=== PATIENT | female | born 1965 | race Caucasian/White ===

== ENCOUNTER 2017-05-27 16:47 | Emergency (ER) | payer BC ==
--- NOTE | 2017-05-27 16:49 | UC ---
Allergic Reaction HPI - HPI Summary HPI Summary: 51 YEAR OLD FEMALE PRESENTS WITH A ANAPHYLACTIC REACTION TO A BEE STING. - History of Current Complaint Stated Complaint: STUNG BY BEE,SOB Time Seen by Provider: 05/27/17 16:49 - Allergies/Home Medications Allergies/Adverse Reactions: Allergies Allergy/AdvReac Type Severity Reaction Status Date / Time No Known Allergies Allergy Verified 05/27/17 16:58 Home Medications: Home Medications Magnesium [Magnesium Elemental] 05/27/17 [History] diPHENhydraMINE PO* [Benadryl PO 25 MG TAB*] 25 mg PO PRN 05/27/17 [History] PMH/Surg Hx/FS Hx/Imm Hx Previously Healthy: Yes - Surgical History Surgical History: Yes Surgery Procedure, Year, and Place: RT ANKLE AGE 12, ROTATOR CUFF RT - Family History Known Family History: Positive: Other - NONCONTRIBUTORY - Social History Alcohol Use: Weekly Alcohol Amount: 3-4 WEEKLY Substance Use Type: None Smoking Status (MU): Never Smoked Tobacco Review of Systems Constitutional: Negative Skin: Rash Eyes: Negative ENT: Negative Respiratory: Negative Cardiovascular: Negative Gastrointestinal: Negative Genitourinary: Negative Motor: Negative Neurovascular: Negative Musculoskeletal: Negative Neurological: Negative Psychological: Negative All Other Systems Reviewed And Are Negative: Yes Physical Exam Triage Information Reviewed: Yes Eye Exam: Normal ENT Exam: Normal Dental Exam: Normal Neck exam: Normal Neck: Positive: 1 Respiratory Exam: Normal Cardiovascular Exam: Normal Abdominal Exam: Normal Musculoskeletal Exam: Normal Neurological Exam: Normal Psychological Exam: Normal Skin: Positive: rashes Allergic Reaction Course/Dx - Differential Dx/Diagnosis Provider Diagnoses: ANAPHYLACTIC REACTION TO BEE STING Discharge - Discharge Plan Condition: Stable Disposition: [facility] Patient Education Materials: Insect Bite or Sting (ED) Referrals: Tamiko Kearney MD [Primary Care Provider] -
[2017-05-27] MEDS ORDERED: diPHENhydraMINE IV* 50 MG/ML 1 ml VIAL (BENADRYL) IM ONE (16:50)
[2017-05-27] MEDS ORDERED: methylPREDNISolone 125 MG* 2 ML VIAL IM ONE (16:50)
[2017-05-27] MEDS ORDERED: NS 0.9% 1000 ML* 1,000 ML IV ONE (16:52)
[2017-05-27] MEDS ORDERED: Famotidine TAB* 20 MG PO ONE (16:53)
[2017-05-27] MEDS ORDERED: EPINEPHrine AMP 1 MG/ML SUBCUT ONE (16:54)
[2017-05-27 16:58] VITALS: BP 152/84
== END 2017-05-27 17:30 | disposition short-term general hospital (02) ==
LOC: UCEAST 16:47
DX: T63.441A Toxic effect of venom of bees, accidental (unintentional), initial encounter (principal); T78.2XXA Anaphylactic shock, unspecified, initial encounter; R21 Rash and other nonspecific skin eruption; Y92.9 Unspecified place or not applicable
CPT/HCPCS: 93005; 96360; 96372; 96375; 96376; 99213; A9270-GY; G0463; J0171; J1200; J2930

== ENCOUNTER 2017-05-27 18:16 | Emergency (ER) | payer BC ==
--- NOTE | 2017-05-27 19:45 | ED ---
Jose Nieves Angela, scribed for Jamie Dumont MD on 05/27/17 at 1824 . Allergic Reaction/Systemic - HPI Summary HPI Summary: 51 y/o female presents to the ED [facility] from [facility] c/o allergic reaction s/p a bee sting at around 4:15 PM today. Pt notes that her legs, hands, face became very itchy. She reports it became hard to swallow and described it as feeling " a big gulp of water making it hard to swallow." She notes erythematous and pruritic hives on both her arms. Pt states she had a shot of epi, steroids, benadryl, and oral pepsin at [facility]. - History of Current Complaint Hx Obtained From: Patient Onset/Duration: Sudden Onset Timing: Lasting Hours Character: Swelling, Pruritus, Hives Associated Signs And Symptoms: Positive: Throat Tightening. Negative: Difficulty Breathing - Allergies/Home Medications Allergies/Adverse Reactions: Allergies Allergy/AdvReac Type Severity Reaction Status Date / Time No Known Allergies Allergy Verified 05/27/17 16:58 PMH/Surg Hx/FS Hx/Imm Hx Endocrine/Hematology History: Denies: Hx Diabetes Cardiovascular History: Denies: Hx Hypertension, Hx Pacemaker/ICD History: Denies: Hx Renal Disease Sensory History: Reports: Hx Contacts or Glasses - CONTACTS-INSTRUCTED TO WEAR GLASSES Denies: Hx Hearing Aid Opthamlomology History: Reports: Hx Contacts or Glasses - CONTACTS-INSTRUCTED TO WEAR GLASSES Psychiatric History: Denies: Hx Panic Disorder - Surgical History Surgery Procedure, Year, and Place: RT ANKLE AGE 12, ROTATOR CUFF RT Hx Anesthesia Reactions: No - Family History Known Family History: Positive: Other - NONCONTRIBUTORY - Social History Alcohol Use: Weekly Alcohol Amount: 3-4 WEEKLY Substance Use Type: Reports: None Smoking Status (MU): Never Smoked Tobacco Review of Systems Positive: Other - Itchiness on legs, arms, and face. Positive: Other - Itchy arms, legs, and face Positive: Rash All Other Systems Reviewed And Are Negative: Yes Physical Exam - Summary Physical Exam Summary: General: well-appearing, no pain distress Skin: warm, color reflects adequate perfusion, dry Head: normal Eyes: EOMI, BETH ENT: normal Neck: supple, nontender Respiratory: CTA, breath sounds present Cardiovascular: RRR Abdomen: soft, nontender Bowel: present Musculoskeletal: normal, strength/ROM intact Neurological: normal, sensory/motor intact, A&O x3 Psychological: affect/mood appropriate Triage Information Reviewed: Yes Vital Signs On Initial Exam: Initial Vitals Temp Pulse Resp BP Pulse Ox 98.5 F 82 16 112/63 100 05/27/17 18:27 05/27/17 18:27 05/27/17 18:27 05/27/17 18:27 05/27/17 18:27 Vital Signs Reviewed: Yes Diagnostics - Vital Signs Vital Signs Temp Pulse Resp BP Pulse Ox 05/27/17 18:27 98.5 F 82 16 112/63 100 - Laboratory Lab Statement: Any lab studies that have been ordered have been reviewed, and results considered in the medical decision making process. Allergic Reaction Course/Dx - Course Course Of Treatment: WELL IN ED. NO CRITICAL CARE TIME. DISCHARGE HOME STABLE. - Diagnoses Provider Diagnoses: Allergic reaction to bee sting Discharge - Discharge Plan Condition: Stable Disposition: HOME Prescriptions: Epinephrine [Epipen 2-Abelino] 0.3 mg IM ONCE PRN #1 inj PRN Reason: Allergy Symptoms Famotidine TAB* [Pepcid 20 MG TAB*] 20 mg PO BID PRN #10 tab PRN Reason: Allergy Symptoms predniSONE TAB* [Deltasone TAB*] 40 mg PO DAILY PRN #8 tab PRN Reason: Allergy Symptoms Patient Education Materials: General Allergic Reaction (ED) Referrals: Tamiko Kearney MD [Primary Care Provider] - Additional Instructions: FOLLOW UP WITH YOUR DOCTOR. RETURN TO THE EMERGENCY DEPARTMENT FOR ANY WORSENING OF YOUR CONDITION OR QUESTIONS OR CONCERNS. The documentation as recorded by the Jose vergara Angela accurately reflects the service I personally performed and the decisions made by , Jamie Dumont MD.
[2017-05-27 20:12] VITALS: BP 101/70
== END 2017-05-27 20:11 | disposition home or self-care (01) ==
LOC: ED 18:16
DX: T63.441A Toxic effect of venom of bees, accidental (unintentional), initial encounter (principal); R21 Rash and other nonspecific skin eruption; Y92.89 Other specified places as the place of occurrence of the external cause
CPT/HCPCS: 99282